=== PATIENT | female | born 1960 | race Caucasian/White ===

== ENCOUNTER 2017-02-15 09:19 | Observation (INO) | payer SELFPAY ==
[2017-02-15] MEDS ORDERED: NS 0.9% 1000 ML* 1,000 ML IV ONE (11:01)
[2017-02-15] MEDS ORDERED: Morphine INJ* 4 MG/ML 1 ML SYRINGE IV ONE ×2 (11:01→14:34)
[2017-02-15 12:11] LABS: Hematocrit 37 % (35-47); Hemoglobin 11.8 g/dl (12.0-16.0); Mean Corpuscular HGB Conc 32 g/dl (31-36); Mean Corpuscular Hemoglobin 25 pg (27-31); Mean Corpuscular Volume 80 fL (80-97); Mean Platelet Volume 7 um3 (7.4-10.4); Red Blood Count 4.62 10^6/ul (4.0-5.4); Red Cell Distribution Width 15 % (10.5-15); White Blood Count 12.4 10^3/ul (3.5-10.8)
[2017-02-15 12:32] LABS: Albumin 3.8 g/dL (3.2-5.2); BUN/Creatinine Ratio 20.8 (8-20); Calcium 9.2 mg/dL (8.6-10.3); EGFR African American 68.5 (>60); EGFR Non-African American 53.2 (>60); Globulin 3.7 g/dL (2-4); Potassium 3.8 mmol/L (3.5-5.0); Total Bilirubin 0.4 mg/dL (0.2-1.0); Total Protein 7.5 g/dL (6.4-8.9)
[2017-02-15] MEDS ORDERED: Iodixanol* (CONTRAST) 320 MG/ML 100 ML SDV IV ONE (12:33)
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
[2017-02-15 13:25] LABS: Urine Bilirubin Negative (Negative); Urine Glucose Negative (Negative); Urine Nitrite Negative (Negative)
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
[2017-02-15] MEDS ORDERED: Morphine INJ* 10 MG/ML 1 ML SYRINGE IV PRN (17:14)
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
[2017-02-15] MEDS: Morphine INJ* 10 MG/ML 1 ML SYRINGE IV PRN (19:52)
[2017-02-15] MEDS: fentaNYL PATCH 12 MCG/HR TRANSDERM SCH (19:52)
[2017-02-15] MEDS: fentaNYL Patch Check Q Shift 1 NOTE SCH (19:53)
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
[2017-02-15] MEDS: oxyCODONE TAB* 5 MG TAB PO PRN (21:27)
[2017-02-15] MEDS: NS 0.9% 1000 ML* 1,000 ML IV SCH (21:28)
[2017-02-16] MEDS: Morphine INJ* 10 MG/ML 1 ML SYRINGE IV PRN ×4 (01:08→17:02)
[2017-02-16] MEDS: oxyCODONE TAB* 5 MG TAB PO PRN ×5 (01:33→21:36)
[2017-02-16] MEDS: Levothyroxine TAB* 125 MCG TAB PO SCH (05:08)
[2017-02-16 06:05] LABS: Hematocrit 32 % (35-47); Hemoglobin 10.3 g/dl (12.0-16.0); Mean Corpuscular HGB Conc 32 g/dl (31-36); Mean Corpuscular Hemoglobin 26 pg (27-31); Mean Corpuscular Volume 80 fL (80-97); Mean Platelet Volume 7 um3 (7.4-10.4); Red Blood Count 3.99 10^6/ul (4.0-5.4); Red Cell Distribution Width 15 % (10.5-15); White Blood Count 9.7 10^3/ul (3.5-10.8)
[2017-02-16 06:22] LABS: BUN/Creatinine Ratio 16.2 (8-20); Calcium 8.7 mg/dL (8.6-10.3); EGFR African American 61.1 (>60); EGFR Non-African American 47.5 (>60); Potassium 3.9 mmol/L (3.5-5.0)
[2017-02-16] MEDS: NS 0.9% 1000 ML* 1,000 ML IV SCH (06:26)
[2017-02-16] MEDS: Omeprazole CAP* 20 MG PO SCH (06:46)
[2017-02-16] MEDS: fentaNYL Patch Check Q Shift 1 NOTE SCH (06:46)
[2017-02-16] MEDS: metFORMIN* 500 MG TAB PO SCH (08:53)
[2017-02-16] MEDS: DULoxetine DR CAP* 30 MG CAP.DR PO SCH (08:53)
[2017-02-16] MEDS ORDERED: Bisacodyl SUPP* 10 MG SUPP PR ONE (08:59)
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
[2017-02-16] MEDS: Docusate CAP* 100 MG PO PRN ×2 (11:00→21:37)
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
[2017-02-16] MEDS: Ondansetron INJ* 2 MG/ML VIAL IV PRN (18:19)
[2017-02-16] MEDS: Morphine TAB Extended Release (*) 30 MG TAB.ER PO SCH (18:19)
[2017-02-16] MEDS: fentaNYL PATCH 12 MCG/HR TRANSDERM SCH (18:25)
--- NOTE | 2017-02-16 19:54 | RAD ---
INDICATION: L1 fracture COMPARISON: CT February 15, 2017 TECHNIQUE: 2 views were obtained with a back brace in place . FINDINGS: Bones: There is no change in appearance of the compression fracture involving the superior endplate of L1. There is multilevel degenerative spur formation and there is multilevel disc space narrowing. Alignment: Mild focal kyphosis at the thoracolumbar junction. Disc spaces: Mild multilevel degenerative disc space narrowing Soft tissues: There are no soft tissue abnormalities. IMPRESSION: L1 COMPRESSION FRACTURE, UNCHANGED
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
[2017-02-17] MEDS: Morphine TAB Extended Release (*) 30 MG TAB.ER PO SCH ×2 (02:22→09:51)
[2017-02-17] MEDS: oxyCODONE TAB* 5 MG TAB PO PRN ×3 (03:45→11:38)
[2017-02-17] MEDS: Levothyroxine TAB* 125 MCG TAB PO SCH (05:09)
[2017-02-17] MEDS: Docusate CAP* 100 MG PO PRN (05:09)
[2017-02-17] MEDS: Omeprazole CAP* 20 MG PO SCH (07:43)
[2017-02-17] MEDS: DULoxetine DR CAP* 30 MG CAP.DR PO SCH (07:43)
[2017-02-17] MEDS: metFORMIN* 500 MG TAB PO SCH (07:43)
[2017-02-17 08:39] VITALS: BP 115/54
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
[2017-02-17] MEDS: Ondansetron INJ* 2 MG/ML VIAL IV PRN (11:06)
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
== END 2017-02-17 12:22 | disposition home or self-care (01) ==
LOC: ED 09:19 → SSU 16:55
PROVIDERS: ADMIT Surgery; ATTEND Surgery
DX: S32.019A Unspecified fracture of first lumbar vertebra, initial encounter for closed fracture (principal); M25.522 Pain in left elbow; V53.5XXA Driver of pick-up truck or van injured in collision with car, pick-up truck or van in traffic accident, initial encounter; Y92.410 Unspecified street and highway as the place of occurrence of the external cause; M79.7 Fibromyalgia; E11.9 Type 2 diabetes mellitus without complications; E66.01 Morbid (severe) obesity due to excess calories; I10 Essential (primary) hypertension; E03.9 Hypothyroidism, unspecified; J44.9 Chronic obstructive pulmonary disease, unspecified; K21.9 Gastro-esophageal reflux disease without esophagitis; F32.9 Major depressive disorder, single episode, unspecified; Z98.84 Bariatric surgery status; Z79.899 Other long term (current) drug therapy; Z87.891 Personal history of nicotine dependence
CPT/HCPCS: 36415; 70450; 71260; 72100; 72125; 74177; 80048; 80053; 81003; 85025; 86850; 86900; 86901; 96361; 96374; 96375; 96376; 99283; A9270-GY; G0378; J2270; J2405; Q9967

== ENCOUNTER 2017-11-26 11:14 | Inpatient (IN) | payer MEDICARE ==
[2017-11-26] MEDS ORDERED: NS 0.9% 1000 ML* 1,000 ML IV ONE ×2 (11:30→11:31)
[2017-11-26 11:39] LABS: Hematocrit 30 % (35-47); Hemoglobin 9.5 g/dl (12.0-16.0); Mean Corpuscular HGB Conc 31 g/dl (31-36); Mean Corpuscular Hemoglobin 26 pg (27-31); Mean Corpuscular Volume 82 fL (80-97); Mean Platelet Volume 8 um3 (7.4-10.4); Platelet Count 432 10^3/ul (150-450); Red Blood Count 3.73 10^6/ul (4.0-5.4); Red Cell Distribution Width 16 % (10.5-15); White Blood Count 13.9 10^3/ul (3.5-10.8)
[2017-11-26 11:57] LABS: EGFR Non-African American 38.3 (>60)
[2017-11-26 12:01] LABS: Monocytes % 2 % (0-13)
[2017-11-26] MEDS: Pantoprazole IV* 80 MG in NS 0.9% 250 ML* 250 ML IV SCH ×2 (13:54→23:19)
[2017-11-26] MEDS ORDERED: fentaNYL* 50 MCG/ML 2 ML VIAL (100 MCG VIAL) IV SLOW PU ONE (14:28)
[2017-11-26] MEDS: oxyCODONE TAB* 5 MG TAB PO PRN ×3 (15:19→23:33)
[2017-11-26] MEDS: DULoxetine DR CAP* 30 MG CAP.DR PO SCH (15:20)
[2017-11-26 17:40] LABS: ABS Basophils 0.1 10^3/ul (0-0.2); ABS Eosinophils 0 10^3/ul (0-0.6); ABS Lymphocytes 1.4 10^3/ul (1.0-4.8); ABS Monocytes 0.5 10^3/ul (0-0.8); ABS Neutrophils 11.2 10^3/ul (1.5-7.7); ABS Nucleated RBC 0 10^3/ul; Eosinophil % 0 % (0-6); Hematocrit 26 % (35-47); Hemoglobin 8.3 g/dl (12.0-16.0); Mean Corpuscular HGB Conc 32 g/dl (31-36); Mean Corpuscular Hemoglobin 26 pg (27-31); Mean Corpuscular Volume 80 fL (80-97); Mean Platelet Volume 7 um3 (7.4-10.4); Nucleated Red Blood Cells % 0; Platelet Count 339 10^3/ul (150-450); Red Cell Distribution Width 15 % (10.5-15); White Blood Count 13.2 10^3/ul (3.5-10.8)
[2017-11-26 18:01] LABS: INR 1.02 (0.77-1.02)
[2017-11-26] MEDS: Morphine TAB Extended Release (*) 15 MG TAB.ER PO SCH (19:44)
--- NOTE | 2017-11-26 20:38 | HP ---
HISTORY AND PHYSICAL: DATE OF ADMISSION: 11/26/17 ADMITTING PROVIDER: Jose Alfredo Miller MD. PRIMARY CARE PHYSICIAN: Red Davison MD, [place]. CHIEF COMPLAINT: Syncope in the setting of large GI bleed. HISTORY OF PRESENT ILLNESS: Kalina Sánchez is a 57-year-old female with past medical history of non-insulin dependent diabetes mellitus type 2, COPD, depression, GERD, morbid obesity s/p gastric bypass at some point complicated by ruptured ulcer, hypertension, hypothyroidism, fibromyalgia on chronic extrended release morphine who was feeling in her normal state of health when this morning was in her bathroom she suddenly syncopized. Son heard her fall, thinks she had lost consciousness for about 2 to 3 minutes and was found to have a large, what the ED physician reports as a melenic bowel movement. The patient thinks it is possibly either red or coffee-ground stool. Son was not available for further history at this time. Pt took 81mg of aspirin once. a few days prior to syncope for a headache; denies NSAID use. The patient was initially hypotensive with the EMS, 70/40. She got 500 cc en route with improvement in pressures to 90/50 and then 2 L in the ED and improved until 140s /70s. Initial heart rate is 86. GI physician, Dr. Wooten, was consulted by ED physician who will see the patient. The patient was started on Protonix 80 IV. She is being admitted to inpatient status for large volume melena versus hematochezia with resultant hypotension/syncope. Hemoglobin was 9.5. The patient reports history of colonoscopy 8 years ago with a few polyps and was planned to repeat soon after recent discussion with PCP Dr. Davison. The patient does not have any chest pain, shortness of breath. She feels very chilly ever since the bleeding. The patient also had history of what she reports as a gastric ulcer that ruptured approximately 3 years ago. PAST MEDICAL HISTORY: 1. COPD, not on any inhalers. 2. Depression. 3. GERD. 4. Morbid obesity. 5. Hypertension. 6. Hypothyroidism. 7. Fibromyalgia. 8. Non-insulin dependent diabetes mellitus type 2. HOME MEDICATIONS: Include; 1. Lisinopril 10 mg daily. 2. Pravastatin 20 mg daily. 3. [place]-3 fatty acid 1000 mg p.o. daily. 4. Multivitamin 1 tab p.o. b.i.d. 5. Morphine extended release (MS Contin 15 to 30 mg p.o. q.h.s. and 15 mg p.o. b.i.d.). 6. Metformin 500 mg p.o. daily. 7. Lisinopril 10 mg p.o. daily. 8. Synthroid 125 mcg p.o. q.a.m. 9. Nexium 40 mg p.o. daily. 10. Cymbalta 90 mg p.o. daily. 11. Vitamin B12 of 1000 mcg injected monthly. 12. Calcium 600 D-200 mg. 13. Cholecalciferol 1 tab p.o. daily. 14. Oxycodone 10 mg p.o. q.4-6 hours p.r.n. ALLERGIES: No known drug allergies. FAMILY HISTORY: Maternal grandfather with [place]. Mother of non-Hodgkin's lymphoma. Dad alive at age 75. SOCIAL HISTORY: The patient is a former smoker, quit approximately 6 years ago , 30 years of 1 to 1-1/2 packs a day. Denies any current alcohol use or other drug use. REVIEW OF SYSTEMS: A complete 14-point review of systems was negative except as per HPI. PHYSICAL EXAMINATION GENERAL: The patient wrapped in towels, lying on her side in the emergency room. VITAL SIGNS: Currently 144/60, heart rate 75, saturating 97% on room air, temperature 96.7. HEENT: Normocephalic, atraumatic. Pupils equal, round, and reactive to light. Extraocular motion is intact. No cervical lymphadenopathy. NECK: Supple. RESPIRATORY: Clear to auscultation bilaterally with no wheezing, rales or rhonchi. CARDIOVASCULAR: Regular rate and rhythm. No murmurs, rubs or gallops. ABDOMEN: Soft, nontender. Morbidly obese. EXTREMITIES: Warm and well perfused. No peripheral edema. NEUROLOGIC: Grossly intact. Cranial nerves II through XII intact. SKIN: No lesions, no ulcers. LABORATORY DATA: White count 13.9, hemoglobin 9.5, hematocrit 30, platelets 432,000. Sodium 133, potassium 4.9, chloride 103, carbon dioxide 21, BUN 31, creatinine 1.41, glucose 324, AST 13, ALT 9, alk-phos 80, lipase 19. IMAGING: No imaging. ASSESSMENT AND PLAN: Kalina Sánchez is a 57-year-old female with past medical history of diabetes, morbid obesity, gastroesophageal reflux disease and history of what she describes as a ruptured gastric ulcer 3 years prior, who took baby aspirin for headache 2 to 3 days prior to admission, now presenting with syncope and GI bleed described either as melena or dark red. The patient is status post fluid resuscitation on 2 L. We will continue on 150 cc an hour for the next 20 hours and follow with Dr. Wooten. She will be put on telemetry inpatient status, continue the Protonix, follow up the INR and PTT. Get CBC's q.6 hours. For hypothyroidism, continue Synthroid 125 mcg p.o. daily, her Cymbalta 90 mg p.o. daily for depression. For chronic back pain and fibromyalgia, continue oxycodone 10 mg p.o. q.4-6 hours p.r.n. She is a full code. Medical surrogate is her son Sacha Sánchez. She is going to be on a clear liquid diet. [id number]/[facility] #: [id number] [facility]
[2017-11-26] MEDS: NS 0.9% 1000 ML* 1,000 ML IV SCH (23:18)
--- NOTE | 2017-11-26 23:24 | CONS ---
CONSULTATION REPORT: DATE OF CONSULT: 11/26/17 REQUESTING PHYSICIAN: ED physician. NARRATIVE: Mrs. Sánchez is a pleasant 57-year-old female who comes in via ambulance to the emergency room after seeing coffee-ground/very dark stool this morning after having a bowel movement. She denies any abdominal pain. No nausea. No vomiting. She describes the stool as looking very black and coffee- ground like. She took 1 aspirin couple of days ago. She normally does not take nonsteroidals because she has had a perforated marginal ulcer in 2013, which she had surgery on. She again denies any abdominal pain, no vomiting. She is feeling better at this point. She was feeling pale and lightheaded earlier. She is now feeling better. When she first came in, her blood pressure was low. She was hypotensive. She has come up with fluids and is feeling better now. PAST MEDICAL HISTORY: Significant for chronic back pain, hypercholesterolemia, peptic ulcer disease, hypothyroid, hypertension. PAST SURGICAL HISTORY: Include gastric bypass and repair of a perforated marginal ulcer in 2013. MEDICATIONS: Include: 1. Vitamin B12. 2. Pravachol. 3. Vitamin D. 4. Cymbalta. 5. Nexium. 6. Synthroid. 7. Prinivil. 8. Glucophage. 9. Roxicodone. 10. MS Contin. ALLERGIES: None. FAMILY HISTORY: No GI malignancies in the family. REVIEW OF SYSTEMS: Other than mentioned in the HPI were unremarkable. PHYSICAL EXAM: Temperature is 96.7, blood pressure is 143/60, pulse is 75. General: Well-appearing female, in no apparent distress, alert, oriented, pleasant, fluent. HEENT: Mucous membranes are moist without lesions, ulcers, or exudate. Neck: Supple. Trachea is midline. Head: Normocephalic, atraumatic. Abdomen: Positive bowel sounds. Soft, obese, nontender, nondistended. No hepatosplenomegaly, masses, rebound, or guarding. Skin is warm and dry. No rashes or ulcers. Lymph: No cervical lymphadenopathy. DIAGNOSTIC STUDIES/LAB DATA: Of note, bilirubin is 0.4, AST is 13, ALT is 9, BUN is 31, creatinine is 1.41. White count is 13.9, hemoglobin is 9.5 this is about her baseline, platelets of 432. ASSESSMENT AND PLAN: This is a pleasant 57-year-old female with a history of a perforated marginal ulcer after gastric bypass surgery approximately 3-1/2 to 4 years ago, who comes in with reported black stools that looked like coffee grounds. Her hemoglobin is down a little bit. Her BUN is slightly elevated, but her creatinine is also elevated, I do wonder if she is dehydrated. My suspicion right now would be for an upper GI bleed given the description of the dark stools and her slightly elevated BUN, most likely it is an upper GI bleed, potentially could be lower, but less likely she did have a colonoscopy approximately 6 to 7 years ago. She had a polyp removed at that time. No other ominous pathology was seen. She should have 2 large bore IVs, IV PPI. I would like to perform an upper endoscopy tomorrow. She should have a repeat CBC later on today and tomorrow. I will follow along. [id number]/[facility] #: [id number] MTDD
[2017-11-26 23:44] LABS: ABS Basophils 0.1 10^3/ul (0-0.2); ABS Eosinophils 0 10^3/ul (0-0.6); ABS Lymphocytes 3.2 10^3/ul (1.0-4.8); ABS Monocytes 0.8 10^3/ul (0-0.8); ABS Neutrophils 8.5 10^3/ul (1.5-7.7); ABS Nucleated RBC 0 10^3/ul; Eosinophil % 0.2 % (0-6); Hematocrit 22 % (35-47); Hemoglobin 7.2 g/dl (12.0-16.0); Lymphocyte % 25.7 % (25-47); Mean Corpuscular HGB Conc 32 g/dl (31-36); Mean Corpuscular Hemoglobin 26 pg (27-31); Mean Corpuscular Volume 79 fL (80-97); Mean Platelet Volume 8 um3 (7.4-10.4); Nucleated Red Blood Cells % 0; Platelet Count 305 10^3/ul (150-450); Red Blood Count 2.78 10^6/ul (4.0-5.4); Red Cell Distribution Width 15 % (10.5-15); White Blood Count 12.6 10^3/ul (3.5-10.8)
[2017-11-27] MEDS: oxyCODONE TAB* 5 MG TAB PO PRN ×4 (04:39→20:16)
[2017-11-27] MEDS: Levothyroxine TAB* 125 MCG TAB PO SCH (04:39)
[2017-11-27 06:45] LABS: ABS Basophils 0.1 10^3/ul (0-0.2); ABS Eosinophils 0.1 10^3/ul (0-0.6); ABS Lymphocytes 3.1 10^3/ul (1.0-4.8); ABS Monocytes 0.7 10^3/ul (0-0.8); ABS Neutrophils 6.4 10^3/ul (1.5-7.7); ABS Nucleated RBC 0 10^3/ul; Eosinophil % 0.9 % (0-6); Hematocrit 21 % (35-47); Lymphocyte % 29.6 % (25-47); Mean Corpuscular HGB Conc 33 g/dl (31-36); Mean Corpuscular Hemoglobin 26 pg (27-31); Mean Corpuscular Volume 80 fL (80-97); Mean Platelet Volume 8 um3 (7.4-10.4); Nucleated Red Blood Cells % 0; Platelet Count 290 10^3/ul (150-450); Red Blood Count 2.66 10^6/ul (4.0-5.4); Red Cell Distribution Width 15 % (10.5-15); White Blood Count 10.3 10^3/ul (3.5-10.8)
[2017-11-27] MEDS: NS 0.9% 1000 ML* 1,000 ML IV SCH (06:46)
[2017-11-27] MEDS ORDERED: Pantoprazole IV* 40 MG ONE (09:14)
[2017-11-27] MEDS: DULoxetine DR CAP* 30 MG CAP.DR PO SCH (09:22)
[2017-11-27] MEDS: Morphine TAB Extended Release (*) 15 MG TAB.ER PO SCH ×2 (09:23→20:16)
[2017-11-27] MEDS ORDERED: fentaNYL* 50 MCG/ML 2 ML VIAL (100 MCG VIAL) ONE (11:14)
[2017-11-27] MEDS ORDERED: Midazolam* 1 MG/ML 10 ML VIAL (10 MG) ONE ×2 (11:14→12:50)
[2017-11-27] MEDS: Pantoprazole IV* 80 MG in NS 0.9% 250 ML* 250 ML IV SCH (12:17)
[2017-11-27] MEDS: Omeprazole CAP* 20 MG PO SCH (16:10)
[2017-11-27] MEDS: Sucralfate SUSP 1 GM/10 ml 10 ML UDC PO SCH ×2 (16:10→20:17)
--- NOTE | 2017-11-27 16:57 | PN ---
Subjective Date of Service: 11/27/17 Interval History: hgb downtrending to 7.0. To EGD with Sugar today. consented for 1u prbc. denies chest pain, sob. Feeling crummy. No BMs overnight. hemodynamically stable , afebrile. Objective Active Medications: Duloxetine HCl (Cymbalta Cap*) 90 mg PO DAILY [facility] Last Admin: 11/27/17 09:22 Dose: 90 mg Levothyroxine Sodium (Synthroid Tab*) 125 mcg PO 0600 [facility] Last Admin: 11/27/17 04:39 Dose: 125 mcg Morphine Sulfate (Ms Contin(*)) 15 mg PO BID [facility] Last Admin: 11/27/17 09:23 Dose: 15 mg Omeprazole (Prilosec Cap*) 20 mg PO 0730,1630 [facility] Last Admin: 11/27/17 16:10 Dose: 20 mg Oxycodone HCl (Roxycodone Tab*) 10 mg PO Q4H PRN PRN Reason: PAIN Last Admin: 11/27/17 15:57 Dose: 10 mg Sucralfate (Sucralfate Susp) 1 gm PO ACHS [facility] Last Admin: 11/27/17 16:10 Dose: 1 gm Vital Signs - 8 hr 11/27/17 11/27/17 11/27/17 09:00 09:20 09:23 Respiratory 16 16 16 Rate 11/27/17 15:57 Respiratory 18 Rate Oxygen Devices in Use Now: None Appearance: NAD Eyes: No Scleral Icterus, PERRLA Ears/Nose/Mouth/Throat: NL Teeth, Lips, Gums, Mucous Membranes Moist Neck: NL Appearance and Movements; NL JVP, Trachea Midline Respiratory: Symmetrical Chest Expansion and Respiratory Effort, Clear to Auscultation Cardiovascular: NL Sounds; No Murmurs; No JVD, RRR Abdominal: NL Sounds; No Tenderness; No Distention, - - obese Extremities: No Edema, No Clubbing, Cyanosis Skin: No Rash or Ulcers, No Nodules or Sclerosis Neurological: Alert and Oriented x 3, NL Muscle Strength and Tone Nutrition: Taking PO's Result Diagrams: 11/27/17 06:17 11/26/17 11:25 Additional Lab and Data: Laboratory Results - last 24 hr 11/26/17 11/26/17 11/26/17 11:21 17:26 17:26 WBC 13.2 H RBC 3.20 L Hgb 8.3 L Hct 26 L MCV 80 MCH 26 L MCHC 32 RDW 15 Plt Count 339 MPV 7 L Neut % (Auto) 84.6 H Lymph % (Auto) 11.0 L [place] % (Auto) 3.8 Eos % (Auto) 0 Baso % (Auto) 0.6 Absolute Neuts (auto) 11.2 H Absolute Lymphs (auto) 1.4 Absolute Monos (auto) 0.5 Absolute Eos (auto) 0 Absolute Basos (auto) 0.1 Absolute Nucleated RBC 0 Nucleated RBC % 0 INR (Anticoag Therapy) 1.02 APTT 25.9 L Blood Type A Positive Antibody Screen Negative Crossmatch See Detail 11/26/17 11/27/17 23:34 06:17 WBC 12.6 H 10.3 RBC 2.78 L 2.66 L Hgb 7.2 L 7.0 L Hct 22 L 21 L MCV 79 L 80 MCH 26 L 26 L MCHC 32 33 RDW 15 15 Plt Count 305 290 MPV 8 8 Neut % (Auto) 67.2 62.2 Lymph % (Auto) 25.7 29.6 [place] % (Auto) 6.1 6.5 Eos % (Auto) 0.2 0.9 Baso % (Auto) 0.8 0.8 Absolute Neuts (auto) 8.5 H 6.4 Absolute Lymphs (auto) 3.2 3.1 Absolute Monos (auto) 0.8 0.7 Absolute Eos (auto) 0 0.1 Absolute Basos (auto) 0.1 0.1 Absolute Nucleated RBC 0 0 Nucleated RBC % 0 0 INR (Anticoag Therapy) APTT Blood Type Antibody Screen Crossmatch Microbiology and Other Data: Microbiology 11/26/17 11:58 Stool Stool Occult Blood (GILBERT) - Final Assess/Plan/Problems-Billing Assessment: 57 yo female PMH gastric bypass c/b perforated ulcer, HTN, morbid obesity, GERD , depression, COPD p/w syncope and large "coffee ground" stool. Hgb 9.5 downtrending to 7.0. s/p EGD with reported large ulcer. - Patient Problems (1) Acute blood loss anemia Current Visit: Yes Status: Acute Code(s): D62 - ACUTE POSTHEMORRHAGIC ANEMIA SNOMED Code(s): 579523179 Comment: CBC q6. Hgb downtrended from 9.5 to 7.0. consented and getting 1u prbc appreciate GI recs s/p EGD with reported large ulcer carafate pepcid per GI. s/p protonix IV two large bore IVs telemetry (2) Benign hypertension Current Visit: No Status: Active Code(s): I10 - ESSENTIAL (PRIMARY) HYPERTENSION SNOMED Code(s): 06401579 Comment: held home lisinopril 10mg in setting of syncopal GI bleed, pressures improving. 90s on admission in ED. lower in field (3) Diabetes mellitus type 2 Current Visit: No Status: Active Code(s): E11.9 - TYPE 2 DIABETES MELLITUS WITHOUT COMPLICATIONS SNOMED Code(s): 35544202 Comment: holding home metformin 500mg daily. (4) Hypercholesterolemia Current Visit: No Status: Active Code(s): E78.0 - PURE HYPERCHOLESTEROLEMIA * DO NOT USE * SNOMED Code(s): 28313604 Comment: restart home pravastatin 20mg daily. (5) Hypothyroidism Current Visit: No Status: Active Code(s): E03.9 - HYPOTHYROIDISM, UNSPECIFIED SNOMED Code(s): 96034041 Comment: synthroid 125mcg daily. (6) Obesity Current Visit: No Status: Active Code(s): E66.9 - OBESITY, UNSPECIFIED SNOMED Code(s): 068137777 Comment: TO HAVE GASTRIC BYPASS SURGERY AUG 2012 Status and Disposition: medicine inpatient. Attending: Jose Alfredo Miller
[2017-11-27 17:35] LABS: ABS Basophils 0.1 10^3/ul (0-0.2); ABS Eosinophils 0.2 10^3/ul (0-0.6); ABS Lymphocytes 3.6 10^3/ul (1.0-4.8); ABS Monocytes 0.7 10^3/ul (0-0.8); ABS Neutrophils 5.4 10^3/ul (1.5-7.7); ABS Nucleated RBC 0 10^3/ul; Eosinophil % 1.8 % (0-6); Hematocrit 24 % (35-47); Hemoglobin 7.9 g/dl (12.0-16.0); Lymphocyte % 36.1 % (25-47); Mean Corpuscular HGB Conc 33 g/dl (31-36); Mean Corpuscular Hemoglobin 27 pg (27-31); Mean Corpuscular Volume 82 fL (80-97); Mean Platelet Volume 8 um3 (7.4-10.4); Nucleated Red Blood Cells % 0.1; Platelet Count 293 10^3/ul (150-450); Red Blood Count 2.95 10^6/ul (4.0-5.4); Red Cell Distribution Width 16 % (10.5-15)
[2017-11-27] MEDS: CMCS:Pravastatin (NF) 20 MG TAB PO SCH (20:16)
[2017-11-27 23:52] LABS: ABS Basophils 0.1 10^3/ul (0-0.2); ABS Eosinophils 0.3 10^3/ul (0-0.6); ABS Lymphocytes 3.3 10^3/ul (1.0-4.8); ABS Monocytes 0.5 10^3/ul (0-0.8); ABS Neutrophils 5.1 10^3/ul (1.5-7.7); ABS Nucleated RBC 0 10^3/ul; Eosinophil % 3.5 % (0-6); Hematocrit 24 % (35-47); Hemoglobin 7.8 g/dl (12.0-16.0); Lymphocyte % 35.5 % (25-47); Mean Corpuscular HGB Conc 33 g/dl (31-36); Mean Corpuscular Hemoglobin 27 pg (27-31); Mean Corpuscular Volume 82 fL (80-97); Mean Platelet Volume 7 um3 (7.4-10.4); Nucleated Red Blood Cells % 0.1; Platelet Count 284 10^3/ul (150-450); Red Cell Distribution Width 16 % (10.5-15); White Blood Count 9.3 10^3/ul (3.5-10.8)
[2017-11-28] MEDS: oxyCODONE TAB* 5 MG TAB PO PRN ×5 (01:50→19:43)
--- NOTE | 2017-11-28 03:29 | PRO ---
CC: Red Davison MD * DATE OF PROCEDURE: 11/27/17 - ROOM #407 PROCEDURE: EGD. INDICATION: Melena. REFERRING PHYSICIAN: Dr. Miller. MEDICATIONS GIVEN: 100 mcg IV fentanyl, 14 mg IV Versed. PROCEDURE IN DETAIL: After the EGD procedure, including the risks, benefits, and alternative, not limited to perforation, surgery, and/or were explained to Mrs. Sánchez, written consent was then obtained. IV medication was given and a bite- block was placed between the teeth. An Olympus gastroscope was then inserted into the patient's mouth, advanced down the esophagus, into the stomach, into the distal duodenum. In the esophagus, at the GE junction, the mucosa appeared normal. Z- line was intact. The scope was advanced through the GE junction into a large gastric pouch. It appeared larger than normal. No abnormalities were seen. The scope was advanced through the gastrojejunal anastomosis, and at the bifurcation into the afferent and efferent limb there was a very large ulcer. It was clean based and non- bleeding. The scope was withdrawn into the gastric pouch and biopsy was obtained. The scope was withdrawn from the patient. She tolerated the procedure well and was returned to recovery room in stable condition and then returned to the hospital room in stable condition. IMPRESSION: 1. Complete upper endoscopy into the jejunum with biopsies. 2. Large jejunal ulcer, nonbleeding. She will need a b.i.d. PPI and Carafate. She will need a repeat EGD in 6 weeks from now. If not healed, she will need repeat surgery. [id number]/[facility] #: [id number] MTDD
[2017-11-28] MEDS: Levothyroxine TAB* 125 MCG TAB PO SCH (05:54)
[2017-11-28] MEDS: Sucralfate SUSP 1 GM/10 ml 10 ML UDC PO SCH ×4 (05:54→21:23)
[2017-11-28] MEDS: Omeprazole CAP* 20 MG PO SCH ×2 (05:54→17:33)
[2017-11-28 07:29] LABS: ABS Basophils 0.1 10^3/ul (0-0.2); ABS Eosinophils 0.3 10^3/ul (0-0.6); ABS Lymphocytes 2.6 10^3/ul (1.0-4.8); ABS Monocytes 0.4 10^3/ul (0-0.8); ABS Neutrophils 4.5 10^3/ul (1.5-7.7); ABS Nucleated RBC 0 10^3/ul; Eosinophil % 4.1 % (0-6); Hematocrit 22 % (35-47); Hemoglobin 7.2 g/dl (12.0-16.0); Lymphocyte % 32.8 % (25-47); Mean Corpuscular HGB Conc 33 g/dl (31-36); Mean Corpuscular Hemoglobin 27 pg (27-31); Mean Corpuscular Volume 82 fL (80-97); Mean Platelet Volume 8 um3 (7.4-10.4); Nucleated Red Blood Cells % 0.1; Platelet Count 257 10^3/ul (150-450); Red Blood Count 2.64 10^6/ul (4.0-5.4); Red Cell Distribution Width 16 % (10.5-15); White Blood Count 7.9 10^3/ul (3.5-10.8)
[2017-11-28] MEDS ORDERED: Dextrose 50% Syringe 50 ML* 25 GM/50 ML SYRINGE IV PUSH PRN (08:20)
--- NOTE | 2017-11-28 08:26 | PN ---
Subjective Date of Service: 11/28/17 Interval History: No c/o. Walked in her room only. Took 1 ASA at home for a headache. Objective Active Medications: Duloxetine HCl (Cymbalta Cap*) 90 mg PO DAILY [facility] Last Admin: 11/27/17 09:22 Dose: 90 mg Levothyroxine Sodium (Synthroid Tab*) 125 mcg PO 0600 [facility] Last Admin: 11/28/17 05:54 Dose: 125 mcg Metformin HCl (Glucophage*) 500 mg PO DAILY [facility] Morphine Sulfate (Ms Contin(*)) 15 mg PO BID [facility] Last Admin: 11/27/17 20:16 Dose: 15 mg Omeprazole (Prilosec Cap*) 20 mg PO 0730,1630 [facility] Last Admin: 11/28/17 05:54 Dose: 20 mg Oxycodone HCl (Roxycodone Tab*) 10 mg PO Q4H PRN PRN Reason: PAIN Last Admin: 11/28/17 05:54 Dose: 10 mg Pravastatin Sodium (Pravachol (Nf)) 20 mg PO BEDTIME [facility] PRN Reason: Protocol Last Admin: 11/27/17 20:16 Dose: 20 mg Sucralfate (Sucralfate Susp) 1 gm PO ACHS [facility] Last Admin: 11/28/17 05:54 Dose: 1 gm Vital Signs - 8 hr 11/28/17 11/28/17 11/28/17 01:50 03:21 03:38 Temperature 97.8 F Pulse Rate 77 Respiratory 20 18 16 Rate Blood Pressure 128/59 (mmHg) O2 Sat by Pulse 99 Oximetry 11/28/17 05:54 Temperature Pulse Rate Respiratory 18 Rate Blood Pressure (mmHg) O2 Sat by Pulse Oximetry Oxygen Devices in Use Now: None Appearance: Alert, sitting on the edge of her bed. In good spirits. Looks comfortable. Eyes: No Scleral Icterus Ears/Nose/Mouth/Throat: Clear Oropharnyx, Mucous Membranes Moist Respiratory: Symmetrical Chest Expansion and Respiratory Effort, Clear to Auscultation, Clear to Percussion Cardiovascular: NL Sounds; No Murmurs; No JVD, RRR, No Edema, - Extremities: No Edema, No Clubbing, Cyanosis, - Skin: No Rash or Ulcers, No Nodules or Sclerosis, - Neurological: Alert and Oriented x 3, NL Sensation Result Diagrams: 11/28/17 06:11 11/26/17 11:25 Additional Lab and Data: Laboratory Results - last 24 hr 11/26/17 11/26/17 11/26/17 11:21 17:26 17:26 WBC 13.2 H RBC 3.20 L Hgb 8.3 L Hct 26 L MCV 80 MCH 26 L MCHC 32 RDW 15 Plt Count 339 MPV 7 L Neut % (Auto) 84.6 H Lymph % (Auto) 11.0 L [place] % (Auto) 3.8 Eos % (Auto) 0 Baso % (Auto) 0.6 Absolute Neuts (auto) 11.2 H Absolute Lymphs (auto) 1.4 Absolute Monos (auto) 0.5 Absolute Eos (auto) 0 Absolute Basos (auto) 0.1 Absolute Nucleated RBC 0 Nucleated RBC % 0 INR (Anticoag Therapy) 1.02 APTT 25.9 L Blood Type A Positive Antibody Screen Negative Crossmatch See Detail 11/26/17 11/27/17 23:34 06:17 WBC 12.6 H 10.3 RBC 2.78 L 2.66 L Hgb 7.2 L 7.0 L Hct 22 L 21 L MCV 79 L 80 MCH 26 L 26 L MCHC 32 33 RDW 15 15 Plt Count 305 290 MPV 8 8 Neut % (Auto) 67.2 62.2 Lymph % (Auto) 25.7 29.6 [place] % (Auto) 6.1 6.5 Eos % (Auto) 0.2 0.9 Baso % (Auto) 0.8 0.8 Absolute Neuts (auto) 8.5 H 6.4 Absolute Lymphs (auto) 3.2 3.1 Absolute Monos (auto) 0.8 0.7 Absolute Eos (auto) 0 0.1 Absolute Basos (auto) 0.1 0.1 Absolute Nucleated RBC 0 0 Nucleated RBC % 0 0 INR (Anticoag Therapy) APTT Blood Type Antibody Screen Crossmatch Microbiology and Other Data: Microbiology 11/26/17 11:58 Stool Stool Occult Blood ([facility]IL[facility]ERT) - Final Assess/Plan/Problems-Billing Assessment: 57 yo female PMH gastric bypass c/b perforated ulcer, HTN, morbid obesity, GERD , depression, COPD p/w syncope and large "coffee ground" stool. Hgb 9.5 downtrending to 7.0. s/p EGD with reported large ulcer. - Patient Problems (1) Acute blood loss anemia Current Visit: Yes Status: Acute Code(s): D62 - ACUTE POSTHEMORRHAGIC ANEMIA SNOMED Code(s): 159050839 Comment: Jejunal ulcer. Continue sucralfate, bid PPI. 1 U PC's 11/28, consider d/c 11/29. (2) Hypothyroidism Current Visit: No Status: Active Code(s): E03.9 - HYPOTHYROIDISM, UNSPECIFIED SNOMED Code(s): 05233231 Comment: synthroid 125mcg daily. Addon TSH requested. Status and Disposition: medicine inpatient.
[2017-11-28] MEDS: DULoxetine DR CAP* 30 MG CAP.DR PO SCH (09:57)
[2017-11-28] MEDS: metFORMIN* 500 MG TAB PO SCH (09:58)
[2017-11-28] MEDS: Morphine TAB Extended Release (*) 15 MG TAB.ER PO SCH ×2 (09:58→21:24)
[2017-11-28] MEDS: Insulin LISPRO* 1 UNITS UNIT SUBCUT SCH ×4 (09:59→21:25)
[2017-11-28 12:57] LABS: ABS Basophils 0.1 10^3/ul (0-0.2); ABS Eosinophils 0.3 10^3/ul (0-0.6); ABS Lymphocytes 2.2 10^3/ul (1.0-4.8); ABS Monocytes 0.5 10^3/ul (0-0.8); ABS Neutrophils 4.4 10^3/ul (1.5-7.7); ABS Nucleated RBC 0 10^3/ul; Eosinophil % 3.9 % (0-6); Hematocrit 24 % (35-47); Hemoglobin 7.9 g/dl (12.0-16.0); Lymphocyte % 29.1 % (25-47); Mean Corpuscular HGB Conc 34 g/dl (31-36); Mean Corpuscular Hemoglobin 28 pg (27-31); Mean Corpuscular Volume 82 fL (80-97); Mean Platelet Volume 7 um3 (7.4-10.4); Nucleated Red Blood Cells % 0; Platelet Count 240 10^3/ul (150-450); Red Blood Count 2.87 10^6/ul (4.0-5.4); Red Cell Distribution Width 15 % (10.5-15); White Blood Count 7.4 10^3/ul (3.5-10.8)
[2017-11-28 17:03] LABS: ABS Basophils 0.1 10^3/ul (0-0.2); ABS Eosinophils 0.3 10^3/ul (0-0.6); ABS Lymphocytes 1.9 10^3/ul (1.0-4.8); ABS Monocytes 0.5 10^3/ul (0-0.8); ABS Nucleated RBC 0 10^3/ul; Eosinophil % 3.7 % (0-6); Hematocrit 25 % (35-47); Hemoglobin 8.2 g/dl (12.0-16.0); Lymphocyte % 21.3 % (25-47); Mean Corpuscular HGB Conc 33 g/dl (31-36); Mean Corpuscular Hemoglobin 27 pg (27-31); Mean Corpuscular Volume 82 fL (80-97); Mean Platelet Volume 7 um3 (7.4-10.4); Nucleated Red Blood Cells % 0.1; Platelet Count 272 10^3/ul (150-450); Red Blood Count 2.99 10^6/ul (4.0-5.4); Red Cell Distribution Width 15 % (10.5-15); White Blood Count 8.8 10^3/ul (3.5-10.8)
[2017-11-28] MEDS: CMCS:Pravastatin (NF) 20 MG TAB PO SCH (21:25)
[2017-11-28 23:51] LABS: ABS Basophils 0.1 10^3/ul (0-0.2); ABS Eosinophils 0.5 10^3/ul (0-0.6); ABS Lymphocytes 3.2 10^3/ul (1.0-4.8); ABS Monocytes 0.6 10^3/ul (0-0.8); ABS Neutrophils 5.8 10^3/ul (1.5-7.7); ABS Nucleated RBC 0 10^3/ul; Eosinophil % 4.4 % (0-6); Hematocrit 24 % (35-47); Lymphocyte % 31.2 % (25-47); Mean Corpuscular HGB Conc 33 g/dl (31-36); Mean Corpuscular Hemoglobin 27 pg (27-31); Mean Corpuscular Volume 82 fL (80-97); Mean Platelet Volume 8 um3 (7.4-10.4); Nucleated Red Blood Cells % 0.2; Platelet Count 296 10^3/ul (150-450); Red Blood Count 2.94 10^6/ul (4.0-5.4); Red Cell Distribution Width 15 % (10.5-15); White Blood Count 10.3 10^3/ul (3.5-10.8)
--- NOTE | 2017-11-28 23:58 | ED ---
Wilmer Rojas Gabriel, scribed for Blayne Lamb MD on 11/26/17 at 1126 . GI/ HPI - HPI Summary HPI Summary: This patient is a 57 year old F BIBA to [facility] accompanied by her son with a chief complaint of an acute GI bleed that began at 10:00 this morning. The patient denies any abdominal pain. Patient reports lightheadedness during episode. Patient denies diarrhea. The patient reports feeling fine until the episode and denies any use of blood thinners. She is a chronic pain patient and takes morphine and oxycodone daily. EMS reports the toilet was filled nearly to the rim with blood and there was also a gross amount on the floor, they describe the blood as coffee ground colored. Pt found to have initial BP of 74/ 51 with IVF bolus initiated by EMS. On arrival pt BP found to be 90/50's. - History of Current Complaint Chief Complaint: EDGIBleed Stated Complaint: GI BLEED Hx Obtained From: Patient, EMS Onset/Duration: Started Hours Ago - 1, Still Present Timing: Constant Severity: Severe Current Severity: Mild Pain Intensity: 6 Location of Pain: None Associated Signs and Symptoms: Positive: Negative - LOC, Dizziness, Other: - light headed. Negative: Diarrhea, Abdominal Pain - Additional Pertinent History Primary Care Physician: RAMYA - Allergy/Home Medications Allergies/Adverse Reactions: Allergies Allergy/AdvReac Type Severity Reaction Status Date / Time No Known Allergies Allergy Verified 11/08/17 15:18 Home Medications: Home Medications Morphine TAB Extended Rel(*) [Ms Contin(*)] 15 - 30 mg PO BEDTIME 11/26/17 [ History Confirmed 11/26/17] Morphine TAB Extended Rel(*) [Ms Contin(*)] 15 mg PO BID 11/26/17 [History Confirmed 11/26/17] [place]-3 Fatty Acids (Nf) [Fish Oil (NF)] 1,000 mg PO DAILY 11/26/17 [History Confirmed 11/26/17] PMH/Surg Hx/FS Hx/Imm Hx Endocrine/Hematology History: Reports: Hx Diabetes, Hx Thyroid Disease - ON MEDS Denies: Hx Anemia Cardiovascular History: Reports: Hx Hypertension Denies: Hx Congestive Heart Failure, Hx Pacemaker/ICD, Other Cardiovascular Problems/Disorders Respiratory History: Reports: Hx Chronic Obstructive Pulmonary Disease (COPD), Hx Sleep Apnea - Uses Bipap GI History: Reports: Hx Gastroesophageal Reflux Disease Denies: Hx Jaundice Comment Only: Other GI Disorders - GASTRIC BYPASS Musculoskeletal History: Reports: Hx Fibromyalgia Denies: Hx Rheumatoid Arthritis, Hx Osteoporosis Sensory History: Reports: Hx Contacts or Glasses - Reading glasses Denies: Hx Hearing Aid Opthamlomology History: Reports: Hx Contacts or Glasses - Reading glasses Psychiatric History: Reports: Hx Depression Denies: Hx Panic Disorder - Cancer History Hx Chemotherapy: No Hx Radiation Therapy: No - Surgical History Surgery Procedure, Year, and Place: GASTRIC BYPASS 09/26/12,BILATERAL CARPAL TUNNEL- [place]. CYST FROM [facility], [place]; Decompression of cervical spine , C-5; C-6; and C-7 in January [address] [facility] Hx Anesthesia Reactions: No Infectious Disease History: No Infectious Disease History: Denies: Hx Clostridium Difficile, Hx Hepatitis, Hx Human Immunodeficiency Virus (HIV), Hx of Known/Suspected MRSA, Hx Shingles, Hx Tuberculosis, Traveled Outside the [place] in Last 30 Days - Family History Known Family History: Positive: Other Negative: Renal Disease, Respiratory Disease, Seizure Disorder Family History: Significant for non-Hogdkin lymphoma, breast cancer, and thyroid disease. - Social History Alcohol Use: Rare Alcohol Amount: 1 -2 glasses of wine per month Substance Use Type: Reports: None Substance Use Comment - Amount & Last Used: fentanyl patches Smoking Status (MU): Former Smoker Type: eCigarettes Amount Used/How Often: PACK A DAY Have You Smoked in the Last Year: No Review of Systems Gastrointestinal: Other - constipation Positive: Other - gross blood with stool . Negative: Abdominal Pain, Diarrhea Neurological: Negative - LOC , Other - dizzy, light headed All Other Systems Reviewed And Are Negative: Yes Physical Exam - Summary Physical Exam Summary: Appearance: Well-appearing, no distress, Well-nourished Skin: Warm, color reflects adequate perfusion Head: Normal Head/Face inspection Eyes: Conjunctiva clear, no pallor ENT: Normal inspection Neck: Supple, no nodes, no JVD. Respiratory: Lungs clear, Normal breath sounds, no respiratory distress Cardio: RRR, No murmur, pulses normal, capillary refill is less than 2 seconds, distal pulses 2+ and bounding Abdomen: soft, nontender, no guarding, no rebound; gross, melonic blood noted at rectum. Rectum nontender with no masses. Bowel sounds: present, normal Musculoskeletal: Strength Intact/ ROM intact. No calf tenderness. No edema. Neuro: Alert, muscle tone normal, facial symmetry, speech normal, sensory/motor intact Psychological: Normal Triage Information Reviewed: Yes Vital Signs On Initial Exam: Initial Vitals Temp Pulse Resp BP Pulse Ox 96.7 F 90 16 96/58 100 11/26/17 11:21 11/26/17 11:21 11/26/17 11:21 11/26/17 11:21 11/26/17 11:21 Vital Signs Reviewed: Yes Diagnostics - Vital Signs Vital Signs Temp Pulse Resp BP Pulse Ox 11/26/17 11:21 96.7 F 90 16 96/58 100 - Laboratory Lab Results: Lab Results 11/26/17 11/26/17 11/26/17 Range/Units 11:21 11:25 11:25 WBC 13.9 H (3.5-10.8) 10^3/ul RBC 3.73 L (4.0-5.4) 10^6/ul Hgb 9.5 L (12.0-16.0) g/dl Hct 30 L (35-47) % MCV 82 (80-97) fL MCH 26 L (27-31) pg MCHC 31 (31-36) g/dl RDW 16 H (10.5-15) % Plt Count 432 (150-450) 10^3/ul MPV 8 (7.4-10.4) um3 Neut % (Auto) Not Reportable Lymph % (Auto) Not Reportable [place] % (Auto) Not Reportable Eos % (Auto) Not Reportable Baso % (Auto) Not Reportable Absolute Neuts (auto) Not Reportable Absolute Lymphs (auto) Not Reportable Absolute Monos (auto) Not Reportable Absolute Eos (auto) Not Reportable Absolute Basos (auto) Not Reportable Absolute Nucleated RBC Not Reportable Immature Gran % 1 (0-9) % Neutrophils % 67 (38-83) % Band Neutrophils % 1 (0-8) % Lymphocytes % 23 L (25-47) % Monocytes % 2 (0-13) % Eosinophils % 2 (0-6) % Basophils % 1 (0-2) % Myelocytes % 4 H (0-1) % Nucleated RBC % Not Reportable Abs Neuts (Manual) 9.3 H (1.5-7.7) 10^3/ul Abs Monocytes (Manual) 0.3 (0-0.8) 10^3/ul Absolute Eos (Manual) 0.3 (0-0.6) 10^3/ul Abs Basophils (Manual) 0.1 (0-0.2) 10^3/ul Normal RBC Morphology Normal (Normal) Sodium 133 (133-145) mmol/L Potassium 4.9 (3.5-5.0) mmol/L Chloride 103 (101-111) mmol/L Carbon Dioxide 21 L (22-32) mmol/L Anion Gap 9 (2-11) mmol/L BUN 31 H (6-24) mg/dL Creatinine 1.41 H (0.51-0.95) mg/dL Est GFR ( Amer) 49.3 (>60) Est GFR (Non-Af Amer) 38.3 (>60) BUN/Creatinine Ratio 22.0 H (8-20) Glucose 324 H (70-100) mg/dL Calcium 8.5 L (8.6-10.3) mg/dL Total Bilirubin 0.40 (0.2-1.0) mg/dL AST 13 (13-39) U/L ALT 9 (7-52) U/L Alkaline Phosphatase 80 (34-104) U/L Total Protein 6.0 L (6.4-8.9) g/dL Albumin 3.0 L (3.2-5.2) g/dL Globulin 3.0 (2-4) g/dL Albumin/Globulin Ratio 1.0 (1-3) Blood Type A Positive Antibody Screen Negative Result Diagrams: 11/28/17 23:37 11/26/17 11:25 Lab Statement: Any lab studies that have been ordered have been reviewed, and results considered in the medical decision making process. Re-Evaluation - Re-Evaluation First Eval Re-Evaluation Time: 12:15 Change: Improved - Pt resting comfortably in bed. Pt hemodynamically stable; Pt repeat BP 130/50's after IVF bolus x 2 given. Pt hgb 9.5. Will continue to monitor. Second Eval Re-Evaluation Time: 14:04 Change: Improved - Pt contineus to be hemodynamically stable. Pt with no active bleeding in the ED. Spoke with Dr. Wooten (GI) will see pt as inpatient. GIGU Course/Dx - Course Course Of Treatment: Pt with acute GI bleed, with PPI started. Pt hemodynamically stable. Plan for admission with GI consultation. - Diagnoses Differential Diagnoses - Female: Abdominal Aortic Aneurysm, Diverticulitis, Diarrhea, Diverticulosis, Gall Bladder Disease, Gastritis, Hemorrhoids, Peptic Ulcer Disease, Rectal Fissure, Urinary Tract Infection Provider Diagnoses: GI bleed - Physician Notifications Discussed Care Of Patient With: Jose R Wooten Time Discussed With Above Provider: 12:40 Instructed by Provider To: Other - We discussed patient care with Dr. Wooten ( GI) pt to be seen for further treatment. Discharge - Discharge Plan Condition: Improved Disposition: ADMITTED TO [facility] Consult Consult: 13:17 We discussed patient care with Dr. Miller and he accepted the patient for admission. The documentation as recorded by the Wilmer smith Gabriel accurately reflects the service I personally performed and the decisions made by , Blayne Lamb MD.
[2017-11-29] MEDS: oxyCODONE TAB* 5 MG TAB PO PRN ×5 (01:04→21:29)
[2017-11-29] MEDS: Levothyroxine TAB* 125 MCG TAB PO SCH (05:42)
[2017-11-29 05:53] LABS: ABS Basophils 0.1 10^3/ul (0-0.2); ABS Eosinophils 0.4 10^3/ul (0-0.6); ABS Lymphocytes 2.5 10^3/ul (1.0-4.8); ABS Monocytes 0.5 10^3/ul (0-0.8); ABS Neutrophils 4.8 10^3/ul (1.5-7.7); ABS Nucleated RBC 0 10^3/ul; Eosinophil % 4.4 % (0-6); Hematocrit 22 % (35-47); Hemoglobin 7.6 g/dl (12.0-16.0); Lymphocyte % 30.3 % (25-47); Mean Corpuscular HGB Conc 34 g/dl (31-36); Mean Corpuscular Hemoglobin 28 pg (27-31); Mean Corpuscular Volume 82 fL (80-97); Mean Platelet Volume 7 um3 (7.4-10.4); Nucleated Red Blood Cells % 0.1; Platelet Count 264 10^3/ul (150-450); Red Blood Count 2.75 10^6/ul (4.0-5.4); Red Cell Distribution Width 15 % (10.5-15); White Blood Count 8.3 10^3/ul (3.5-10.8)
[2017-11-29 06:12] LABS: EGFR Non-African American 48.5 (>60)
[2017-11-29] MEDS: Sucralfate SUSP 1 GM/10 ml 10 ML UDC PO SCH ×4 (07:36→21:43)
[2017-11-29] MEDS: Omeprazole CAP* 20 MG PO SCH ×2 (07:36→16:43)
[2017-11-29] MEDS: Morphine TAB Extended Release (*) 15 MG TAB.ER PO SCH ×2 (08:49→21:28)
[2017-11-29] MEDS ORDERED: Levothyroxine TAB* 150 MCG TAB PO SCH (08:52)
[2017-11-29] MEDS ORDERED: oxyCODONE TAB* 5 MG TAB PO PRN (08:52)
[2017-11-29] MEDS: metFORMIN* 500 MG TAB PO SCH (08:53)
[2017-11-29] MEDS: DULoxetine DR CAP* 30 MG CAP.DR PO SCH (08:53)
--- NOTE | 2017-11-29 08:53 | PN ---
Subjective Date of Service: 11/29/17 Interval History: No c/o. No BM since my last visit. Objective Active Medications: Dextrose (D50w Syringe 50 Ml*) 12.5 gm IV PUSH .FOR FS < 60 - SS PRN PRN Reason: FS < 60 Duloxetine HCl (Cymbalta Cap*) 90 mg PO DAILY [facility] Last Admin: 11/28/17 09:57 Dose: 90 mg Insulin Human Lispro (Humalog*) 0 units SUBCUT [facility] PRN Reason: Protocol Last Admin: 11/28/17 21:25 Dose: 6 units Levothyroxine Sodium (Synthroid Tab*) 125 mcg PO 0600 [facility] Last Admin: 11/29/17 05:42 Dose: 125 mcg Metformin HCl (Glucophage*) 500 mg PO DAILY [facility] Last Admin: 11/28/17 09:58 Dose: 500 mg Morphine Sulfate (Ms Contin(*)) 15 mg PO BID [facility] Last Admin: 11/28/17 21:24 Dose: 15 mg Omeprazole (Prilosec Cap*) 20 mg PO 0730,1630 [facility] Last Admin: 11/29/17 07:36 Dose: 20 mg Oxycodone HCl (Roxycodone Tab*) 10 mg PO Q4H PRN PRN Reason: PAIN Last Admin: 11/29/17 05:42 Dose: 10 mg Pravastatin Sodium (Pravachol (Nf)) 20 mg PO BEDTIME [facility] PRN Reason: Protocol Last Admin: 11/28/17 21:25 Dose: 20 mg Sucralfate (Sucralfate Susp) 1 gm PO ACHS [facility] Last Admin: 11/29/17 07:36 Dose: 1 gm Vital Signs - 8 hr 11/29/17 11/29/17 11/29/17 01:04 03:34 04:01 Temperature 98.1 F Pulse Rate 78 Respiratory 18 18 18 Rate Blood Pressure 124/60 (mmHg) O2 Sat by Pulse 97 Oximetry 11/29/17 11/29/17 11/29/17 05:42 08:02 08:14 Temperature 98.0 F Pulse Rate 73 Respiratory 18 18 18 Rate Blood Pressure 129/66 (mmHg) O2 Sat by Pulse 99 Oximetry Oxygen Devices in Use Now: None, CPAP Appearance: Alert, sitting on the edge of her bed. In good spirits. Looks comfotable. Eyes: No Scleral Icterus Abdominal: NL Sounds; No Tenderness; No Distention, No Hepatosplenomegaly, - Extremities: No Edema, No Clubbing, Cyanosis, - Skin: No Rash or Ulcers, No Nodules or Sclerosis, - Neurological: Alert and Oriented x 3, NL Sensation Result Diagrams: 11/29/17 05:30 11/29/17 05:30 Additional Lab and Data: Lab Results 11/26/17 11/26/17 11/26/17 Range/Units 11:21 11:25 11:25 WBC 13.9 H (3.5-10.8) 10^3/ul RBC 3.73 L (4.0-5.4) 10^6/ul Hgb 9.5 L (12.0-16.0) g/dl Hct 30 L (35-47) % MCV 82 (80-97) fL MCH 26 L (27-31) pg MCHC 31 (31-36) g/dl RDW 16 H (10.5-15) % Plt Count 432 (150-450) 10^3/ul MPV 8 (7.4-10.4) um3 Neut % (Auto) Not Reportable Lymph % (Auto) Not Reportable [place] % (Auto) Not Reportable Eos % (Auto) Not Reportable Baso % (Auto) Not Reportable Absolute Neuts (auto) Not Reportable Absolute Lymphs (auto) Not Reportable Absolute Monos (auto) Not Reportable Absolute Eos (auto) Not Reportable Absolute Basos (auto) Not Reportable Absolute Nucleated RBC Not Reportable Immature Gran % 1 (0-9) % Neutrophils % 67 (38-83) % Band Neutrophils % 1 (0-8) % Lymphocytes % 23 L (25-47) % Monocytes % 2 (0-13) % Eosinophils % 2 (0-6) % Basophils % 1 (0-2) % Myelocytes % 4 H (0-1) % Nucleated RBC % Not Reportable Abs Neuts (Manual) 9.3 H (1.5-7.7) 10^3/ul Abs Monocytes (Manual) 0.3 (0-0.8) 10^3/ul Absolute Eos (Manual) 0.3 (0-0.6) 10^3/ul Abs Basophils (Manual) 0.1 (0-0.2) 10^3/ul Normal RBC Morphology Normal (Normal) Sodium 133 (133-145) mmol/L Potassium 4.9 (3.5-5.0) mmol/L Chloride 103 (101-111) mmol/L Carbon Dioxide 21 L (22-32) mmol/L Anion Gap 9 (2-11) mmol/L BUN 31 H (6-24) mg/dL Creatinine 1.41 H (0.51-0.95) mg/dL Est GFR ( Amer) 49.3 (>60) Est GFR (Non-Af Amer) 38.3 (>60) BUN/Creatinine Ratio 22.0 H (8-20) Glucose 324 H (70-100) mg/dL Calcium 8.5 L (8.6-10.3) mg/dL Total Bilirubin 0.40 (0.2-1.0) mg/dL AST 13 (13-39) U/L ALT 9 (7-52) U/L Alkaline Phosphatase 80 (34-104) U/L Total Protein 6.0 L (6.4-8.9) g/dL Albumin 3.0 L (3.2-5.2) g/dL Globulin 3.0 (2-4) g/dL Albumin/Globulin Ratio 1.0 (1-3) Blood Type A Positive Antibody Screen Negative Microbiology and Other Data: Microbiology 11/26/17 11:58 Stool Stool Occult Blood ([facility]IL[facility]ERT) - Final Assess/Plan/Problems-Billing Assessment: 57 yo female PMH gastric bypass c/b perforated ulcer, HTN, morbid obesity, GERD , depression, COPD p/w syncope and large "coffee ground" stool. Hgb 9.5 downtrending to 7.0. s/p EGD with reported large ulcer. - Patient Problems (1) Acute blood loss anemia Current Visit: Yes Status: Acute Code(s): D62 - ACUTE POSTHEMORRHAGIC ANEMIA SNOMED Code(s): 293826757 Comment: Jejunal ulcer. Continue sucralfate, bid PPI. 1 U PC's 11/28, consider d/c 11/30. Ferritin add-on requested. Consider IV iron. (2) Hypothyroidism Current Visit: No Status: Active Code(s): E03.9 - HYPOTHYROIDISM, UNSPECIFIED SNOMED Code(s): 39675274 Comment: Increase levothyroxine to 150 mcg daily. Addon TSH was 8+ Status and Disposition: medicine inpatient.
[2017-11-29] MEDS: Insulin LISPRO* 1 UNITS UNIT SUBCUT SCH ×4 (08:54→21:35)
[2017-11-29] MEDS: CMCS:Pravastatin (NF) 20 MG TAB PO SCH (21:43)
[2017-11-30] MEDS: oxyCODONE TAB* 5 MG TAB PO PRN ×3 (04:15→12:24)
[2017-11-30 07:40] LABS: ABS Basophils 0.1 10^3/ul (0-0.2); ABS Eosinophils 0.3 10^3/ul (0-0.6); ABS Lymphocytes 2.1 10^3/ul (1.0-4.8); ABS Monocytes 0.5 10^3/ul (0-0.8); ABS Neutrophils 5.1 10^3/ul (1.5-7.7); ABS Nucleated RBC 0 10^3/ul; Eosinophil % 3.8 % (0-6); Hematocrit 25 % (35-47); Hemoglobin 8.4 g/dl (12.0-16.0); Lymphocyte % 25.8 % (25-47); Mean Corpuscular HGB Conc 33 g/dl (31-36); Mean Corpuscular Hemoglobin 28 pg (27-31); Mean Corpuscular Volume 82 fL (80-97); Mean Platelet Volume 7 um3 (7.4-10.4); Nucleated Red Blood Cells % 0; Platelet Count 329 10^3/ul (150-450); Red Blood Count 3.05 10^6/ul (4.0-5.4); Red Cell Distribution Width 16 % (10.5-15); White Blood Count 8.1 10^3/ul (3.5-10.8)
[2017-11-30] MEDS: Insulin LISPRO* 1 UNITS UNIT SUBCUT SCH ×2 (07:44→11:45)
[2017-11-30] MEDS: Omeprazole CAP* 20 MG PO SCH (08:23)
[2017-11-30] MEDS: Sucralfate SUSP 1 GM/10 ml 10 ML UDC PO SCH ×2 (08:23→12:24)
[2017-11-30] MEDS: Morphine TAB Extended Release (*) 15 MG TAB.ER PO SCH (08:24)
[2017-11-30] MEDS: DULoxetine DR CAP* 30 MG CAP.DR PO SCH (08:24)
[2017-11-30] MEDS: metFORMIN* 500 MG TAB PO SCH (08:25)
--- NOTE | 2017-11-30 09:07 | PN ---
Subjective Date of Service: 11/30/17 Interval History: Time spent on discharge 50 minutes. Objective Active Medications: Dextrose (D50w Syringe 50 Ml*) 12.5 gm IV PUSH .FOR FS < 60 - SS PRN PRN Reason: FS < 60 Duloxetine HCl (Cymbalta Cap*) 90 mg PO DAILY [facility] Last Admin: 11/30/17 08:24 Dose: 90 mg Iron Sucrose 200 mg/ Sodium (Chloride) 110 mls @ 110 mls/hr IVPB ONCE ONE Stop: 11/30/17 09:46 Insulin Human Lispro (Humalog*) 0 units SUBCUT [facility] PRN Reason: Protocol Last Admin: 11/30/17 07:44 Dose: Not Given Levothyroxine Sodium (Synthroid Tab*) 150 mcg PO 0600 [facility] Last Admin: 11/30/17 05:25 Dose: 150 mcg Metformin HCl (Glucophage*) 500 mg PO DAILY [facility] Last Admin: 11/30/17 08:25 Dose: 500 mg Morphine Sulfate (Ms Contin(*)) 15 mg PO BID [facility] Last Admin: 11/30/17 08:24 Dose: 15 mg Omeprazole (Prilosec Cap*) 20 mg PO 0730,1630 [facility] Last Admin: 11/30/17 08:23 Dose: 20 mg Oxycodone HCl (Roxycodone Tab*) 10 mg PO Q4H PRN PRN Reason: PAIN Last Admin: 11/30/17 08:25 Dose: 10 mg Oxycodone HCl (Roxycodone Tab*) 5 mg PO Q4H PRN PRN Reason: PAIN - MODERATE Pravastatin Sodium (Pravachol (Nf)) 20 mg PO BEDTIME [facility] PRN Reason: Protocol Last Admin: 11/29/17 21:43 Dose: 20 mg Sucralfate (Sucralfate Susp) 1 gm PO ACHS [facility] Last Admin: 11/30/17 08:23 Dose: 1 gm Vital Signs - 8 hr 11/30/17 11/30/17 11/30/17 04:15 07:23 07:49 Temperature 98.0 F Pulse Rate 76 Respiratory 16 18 16 Rate Blood Pressure 131/53 (mmHg) O2 Sat by Pulse 98 Oximetry 11/30/17 11/30/17 08:24 08:25 Temperature Pulse Rate Respiratory 16 16 Rate Blood Pressure (mmHg) O2 Sat by Pulse Oximetry Oxygen Devices in Use Now: CPAP Result Diagrams: 11/30/17 07:32 11/29/17 05:30 Additional Lab and Data: Lab Results 11/26/17 11/26/17 11/26/17 Range/Units 11:21 11:25 11:25 WBC 13.9 H (3.5-10.8) 10^3/ul RBC 3.73 L (4.0-5.4) 10^6/ul Hgb 9.5 L (12.0-16.0) g/dl Hct 30 L (35-47) % MCV 82 (80-97) fL MCH 26 L (27-31) pg MCHC 31 (31-36) g/dl RDW 16 H (10.5-15) % Plt Count 432 (150-450) 10^3/ul MPV 8 (7.4-10.4) um3 Neut % (Auto) Not Reportable Lymph % (Auto) Not Reportable [place] % (Auto) Not Reportable Eos % (Auto) Not Reportable Baso % (Auto) Not Reportable Absolute Neuts (auto) Not Reportable Absolute Lymphs (auto) Not Reportable Absolute Monos (auto) Not Reportable Absolute Eos (auto) Not Reportable Absolute Basos (auto) Not Reportable Absolute Nucleated RBC Not Reportable Immature Gran % 1 (0-9) % Neutrophils % 67 (38-83) % Band Neutrophils % 1 (0-8) % Lymphocytes % 23 L (25-47) % Monocytes % 2 (0-13) % Eosinophils % 2 (0-6) % Basophils % 1 (0-2) % Myelocytes % 4 H (0-1) % Nucleated RBC % Not Reportable Abs Neuts (Manual) 9.3 H (1.5-7.7) 10^3/ul Abs Monocytes (Manual) 0.3 (0-0.8) 10^3/ul Absolute Eos (Manual) 0.3 (0-0.6) 10^3/ul Abs Basophils (Manual) 0.1 (0-0.2) 10^3/ul Normal RBC Morphology Normal (Normal) Sodium 133 (133-145) mmol/L Potassium 4.9 (3.5-5.0) mmol/L Chloride 103 (101-111) mmol/L Carbon Dioxide 21 L (22-32) mmol/L Anion Gap 9 (2-11) mmol/L BUN 31 H (6-24) mg/dL Creatinine 1.41 H (0.51-0.95) mg/dL Est GFR ( Amer) 49.3 (>60) Est GFR (Non-Af Amer) 38.3 (>60) BUN/Creatinine Ratio 22.0 H (8-20) Glucose 324 H (70-100) mg/dL Calcium 8.5 L (8.6-10.3) mg/dL Total Bilirubin 0.40 (0.2-1.0) mg/dL AST 13 (13-39) U/L ALT 9 (7-52) U/L Alkaline Phosphatase 80 (34-104) U/L Total Protein 6.0 L (6.4-8.9) g/dL Albumin 3.0 L (3.2-5.2) g/dL Globulin 3.0 (2-4) g/dL Albumin/Globulin Ratio 1.0 (1-3) Blood Type A Positive Antibody Screen Negative Microbiology and Other Data: Microbiology 11/26/17 11:58 Stool Stool Occult Blood ([facility]) - Final Assess/Plan/Problems-Billing Assessment: 57 yo female PMH gastric bypass c/b perforated ulcer, HTN, morbid obesity, GERD , depression, COPD p/w syncope and large "coffee ground" stool. Hgb 9.5 downtrending to 7.0. s/p EGD with reported large ulcer. - Patient Problems (1) Acute blood loss anemia Current Visit: Yes Status: Acute Code(s): D62 - ACUTE POSTHEMORRHAGIC ANEMIA SNOMED Code(s): 011369895 Comment: Jejunal ulcer. Continue sucralfate, bid PPI. 1 U PC's 11/28, consider d/c 11/30. Ferritin add-on requested. Consider IV iron. (2) Hypothyroidism Current Visit: No Status: Active Code(s): E03.9 - HYPOTHYROIDISM, UNSPECIFIED SNOMED Code(s): 17155582 Comment: Increase levothyroxine to 150 mcg daily. Addon TSH was 8+ Status and Disposition: medicine inpatient.
[2017-11-30] MEDS ORDERED: Iron Sucrose* 200 MG in NS 0.9% 100 ML* 100 ML IVPB ONE (10:00)
[2017-11-30 14:02] VITALS: BP 148/82
--- NOTE | 2017-11-30 19:51 | PN ---
Progress Note - Progress Note Date of Service: 11/30/17 Note: Rx for omeprazole 20 mg bid, sucralfate susp 1 gm qid and levothyroxine 150 mcg daily transmitted. I phoned patient at home to let her know that her discharge med list was not accurate in regards to to levothyroxine dose .
--- NOTE | 2017-11-30 19:52 | PN ---
Progress Note - Progress Note Date of Service: 11/30/17 Note: Time spent on discharge 50 minutes.
--- NOTE | 2017-12-01 01:35 | DS ---
CC: Red Davison MD; Dr. Wooten DISCHARGE SUMMARY: DATE OF ADMISSION: 11/26/17 DATE OF DISCHARGE: 11/30/17 HISTORY: This 57-year-old woman presented with syncope. She was having a melenic bowel movement at the time of her syncope. In the ambulance her blood pressure was 70/40. She received 500 cc of cynthia talloid in the ambulance. Her blood pressure was then 90/50 in the emergency room. After 2 more lit ers of crystalloid, her blood pressure was over 140 systolic. The patient underwent endoscopy on 11/26/17, a large jejunal ulcer was seen, it was not bleeding at t hat time. It was recommended she take a PPI twice daily as well as sucralfate and have a followup EG D in 6 weeks. These lesions are often related to ischemia and heal poorly. She was also found to be iron deficient during this hospital stay. She was given 1 infusion of iron sucrose 200 mg before discharge. She received 2 units of packed cells. On the day of discharge her hematocrit was 25, hemoglobin 8.4. She had a ferritin level of 20.3 on 11/29/17. I would recommend she probably receive 1 or 2 more doses of iron sucrose 200 mg and then have her álvaro ritin level repeated a week or so after the last dose. I suspect she would absorb oral iron poorly. Laboratory testing showed her iron-binding capacity was 13% saturated. FINAL DIAGNOSES: 1. Acute blood loss anemia with iron deficiency. 2. Hyperthyroidism. I note her levothyroxine dose has been increased as her TSH was over 8. DISCHARGE MEDICATIONS: 1. Omeprazole 20 mg b.i.d. 2. Sucralfate 1 g 4 times a day. 3. Cyanocobalamin 1000 mg IM monthly. 4. Pravastatin 20 mg at bedtime. 5. Oxycodone 10 mg q.4 hours p.r.n. 6. Lisinopril 10 mg daily. 7. Duloxetine 90 mg daily. 8. Metformin 500 mg daily. 9. Esomeprazole 40 mg daily. 10. Multivitamin with mineral 1 daily. 11. Calcium with vitamin D 1 daily. 12. Levothyroxine 150 mcg daily. 13. [place]-3 fatty acids 1000 mg daily. 14. Morphine 15 to 30 mg extended release at bedtime and 15 mg b.i.d. [id number]/[facility] #: [id number]
== END 2017-11-30 16:00 | disposition home or self-care (01) | DRG 811 ==
LOC: ED 11:14 → MED 13:35
PROVIDERS: ADMIT Internal Medicine; ATTEND Internal Medicine
PROC: 0DB68ZX Excision of Stomach, Via Natural or Artificial Opening Endoscopic, Diagnostic (ICD-10-PCS; principal; 2017-11-27)
PROC: 30233N1 Transfusion of Nonautologous Red Blood Cells into Peripheral Vein, Percutaneous Approach (ICD-10-PCS; 2017-11-27)
DX: D62 Acute posthemorrhagic anemia (principal); K28.4 Chronic or unspecified gastrojejunal ulcer with hemorrhage; I95.9 Hypotension, unspecified; E66.01 Morbid (severe) obesity due to excess calories; J44.9 Chronic obstructive pulmonary disease, unspecified; E03.9 Hypothyroidism, unspecified; E11.9 Type 2 diabetes mellitus without complications; K25.9 Gastric ulcer, unspecified as acute or chronic, without hemorrhage or perforation; M79.7 Fibromyalgia; F32.9 Major depressive disorder, single episode, unspecified; K21.9 Gastro-esophageal reflux disease without esophagitis; Z79.84 Long term (current) use of oral hypoglycemic drugs; Z68.39 Body mass index [BMI] 39.0-39.9, adult; Z79.891 Long term (current) use of opiate analgesic; Z79.899 Other long term (current) drug therapy; Z82.49 Family history of ischemic heart disease and other diseases of the circulatory system; Z80.7 Family history of other malignant neoplasms of lymphoid, hematopoietic and related tissues; Z87.891 Personal history of nicotine dependence; Z98.84 Bariatric surgery status
CPT/HCPCS: 36415; 80048; 80053; 82270; 82728; 83690; 84443; 85025; 85610; 85730; 86850; 86900; 86901; 86922; 88305; 99156; 99157; 99284; A9270-GY; J1756; J2250; J3010; P9040